=== PATIENT | female | born 1950 | race Caucasian/White ===

== ENCOUNTER 2022-10-06 19:54 | Inpatient (IN) | payer MEDICARE, OTHER ==
[~2022-10-06] VITALS: Ht 165.1 cm; Wt 48.2 kg
[~2022-10-06 19:54] MED LIST: ACET-2154 PO; MAG-55 PO; MAGN400O6 PO; METO25TA6 PO; MULT1TAB11 PO; ZOLP5TAB8 PO
[2022-10-06] MEDS ORDERED: diphenhydrAMINE 50 MG/1 ML VIAL IM ONE (20:00)
[2022-10-06] MEDS ORDERED: OLANZAPINE 10 MG VIAL IM ONE ×4 (20:00→21:02)
[2022-10-06] MEDS ORDERED: diphenhydrAMINE 50 MG/1 ML VIAL ONE (20:20)
[2022-10-06 20:22] LABS: *BLOOD, URINE NEGATIVE (NEGATIVE); *CLARITY,URINE CLEAR (CLEAR); *COLOR,URINE YELLOW (YELLOW); *KETONES,URINE 2+ (NEGATIVE); *PROTEIN,URINE NEGATIVE (NEGATIVE); *UROBILINOGEN,URINE 0.2 E.U./dl (NORMAL); LEUKOCYTE ESTERASE ,URINE NEGATIVE (NEGATIVE); NITRITE, URINE NEGATIVE (NEGATIVE); PH,URINE 6.5 (5.0-8.0); UGLUCOSE NEGATIVE (NEGATIVE)
[2022-10-06 20:27] LABS: BASOPHILS # (AUTO) 0.4 K/UL (0.0-0.2); EOSINOPHILS # (AUTO) 0.1 K/uL (0.0-0.7); EOSINOPHILS % (AUTO) 1.5 % (0.0-7.0); HEMOGLOBIN 12.5 g/dL (10.9-14.3); LYMPHOCYTES # (AUTO) 0.8 K/uL (0.8-4.8); LYMPHOCYTES % (AUTO) 9.2 % (20.5-51.5); MEAN CORPUSCULAR HEMOGLOBIN 31.1 uug (24.7-32.8); MEAN CORPUSCULAR HGB CONC 33 g/dL (32.3-35.6); MEAN CORPUSCULAR VOLUME 94.6 fL (75.5-95.3); MONOCYTES # (AUTO) 0.6 K/uL (0.1-1.30); MONOCYTES % (AUTO) 6.9 % (0.0-11.0); NEUTROPHILS # (AUTO) 6.3 K/uL (1.8-8.9); NEUTROPHILS % (AUTO) 77.4 % (38.5-71.5); PLATELET COUNT (AUTO) 401 K/uL (179-408); RED BLOOD CELL COUNT(AUTO) 4.02 MIL/uL (3.63-4.92); WHITE BLOOD COUNT (AUTO) 8.2 K/uL (3.8-11.8)
[2022-10-06 20:28] LABS: *AMPHETAMINE, URINE NEGATIVE (NEGATIVE); *BARBITURATE, URINE NEGATIVE (NEGATIVE); *BENZODIAZEPINE, URINE NEGATIVE (NEGATIVE); *CANNABINOID, URINE NEGATIVE (NEGATIVE); *COCCAINE, URINE NEGATIVE (NEGATIVE); *OPIATE, URINE NEGATIVE (NEGATIVE); *PHENCYCLIDINE SCREEN,URINE NEGATIVE (NEGATIVE); FENTANYL, URINE NEGATIVE (NEGATIVE)
[2022-10-06 20:38] LABS: *BILIRUBIN,URIN 1+ (NEGATIVE)
[2022-10-06 20:38] LABS: CALCIUM 10.9 mg/dL (8.5-10.1); CARBON DIOXIDE 25 mmol/L (21-32); CHLORIDE 106 mmol/L (98-107); CREATININE 1.2 mg/dL (0.6-1.3); GLUCOSE 122 mg/dL (74-106); POTASSIUM 3.8 mmol/L (3.5-5.1); SODIUM SERUM 144 mmol/L (136-145); UREA NITROGEN, BLOOD 38 mg/dL (7-18)
[2022-10-06 20:39] LABS: AMMONIA < 10 umol/L (11-32)
[2022-10-06 20:40] LABS: DIFFERENTIAL COMMENT 1
[2022-10-06 20:46] LABS: ALANINE AMINOTRANSFERASE 12 U/L (14-59); ALBUMIN 3.8 g/dL (3.4-5.0); ALKALINE PHOSPHATASE 96 U/L (50-136); ASPARTATE AMINOTRANSFERASE 22 U/L (15-37); BILIRUBIN,DIRECT 0.1 mg/dL (0.0-0.2); BILIRUBIN,TOTAL 0.4 mg/dL (0.2-1.0)
[2022-10-06 20:49] LABS: ACETAMINOPHEN < 10.0 ug/mL (10-30)
[2022-10-06] MEDS ORDERED: DEUT12TA PO (20:56)
[2022-10-06] MEDS ORDERED: PARO-154 PO (20:56)
[2022-10-06] MEDS ORDERED: TRIA15CR2 TP (20:56)
[2022-10-06] MEDS ORDERED: ASCO500C18 PO (20:56)
[2022-10-06] MEDS ORDERED: MELA3CAP2 PO (20:56)
[2022-10-06] MEDS ORDERED: LOPE2TAB25 PO (20:56)
[2022-10-06] MEDS ORDERED: CHOL10005 PO (20:56)
[2022-10-06] MEDS ORDERED: NYST15CR TP (20:56)
[2022-10-06] MEDS ORDERED: GUAI100S69 PO (20:56)
[2022-10-06] MEDS ORDERED: OLAN10TA3 PO (20:56)
[2022-10-06] MEDS ORDERED: MIRT-119 PO (20:56)
[2022-10-06] MEDS ORDERED: POTA-88 PO (20:56)
[2022-10-06 20:58] LABS: RBC,URINE NONE SEEN /HPF (0-3); WBC,URINE 0-3 /HPF (0-3)
[2022-10-06 20:59] LABS: BACTERIA,URINE FEW /HPF (NONE SEEN); SQUAMOUS EPITHELIAL CELL,UR FEW /HPF (NONE SEEN)
[2022-10-06] MEDS ORDERED: LORAZEPAM 2 MG/1 ML VIAL IM ONE (21:00)
[2022-10-06] MEDS ORDERED: LORAZEPAM 2 MG/1 ML VIAL ONE (21:01)
[2022-10-06 21:55] LABS: ETHANOL < 3 MG/DL (0-10)
[2022-10-07] MEDS ORDERED: ACETAMINOPHEN 325 MG TABLET PO PRN (01:15)
[2022-10-07] MEDS ORDERED: MAGNESIUM HYDROXIDE 30 ML LIQUID UDC PO PRN (01:15)
[2022-10-07] MEDS ORDERED: MAG HYDROX/AL HYDROX/SIMETH 30 ML LIQUID UDC PO PRN (01:15)
[2022-10-07] MEDS ORDERED: TEMAZEPAM 7.5 MG CAPSULE PO PRN (01:15)
[2022-10-07] MEDS: CLONAZEPAM 0.5 MG TABLET PO PRN ×2 (01:52→05:47)
[2022-10-07 02:15] VITALS: BP 144/49; TEMP 98; O2SAT 94
[2022-10-07 07:50] VITALS: BP 109/65; TEMP 98.4; O2SAT 97
[2022-10-07] MEDS: DIVALPROEX SPRINKLE 125 MG CAP.SPRINK PO SCH ×3 (11:00→17:00)
[2022-10-07] MEDS: OLANZAPINE ZYDIS 5 MG TAB.RAPDIS PO SCH ×2 (11:15→20:28)
[2022-10-07 16:13] VITALS: BP 136/73; TEMP 98.1; O2SAT 97
[2022-10-07 20:00] VITALS: BP 115/66; TEMP 96.6; O2SAT 99
[2022-10-07] MEDS: MIRTAZAPINE 15 MG TABLET PO SCH (20:27)
[2022-10-07] MEDS: NYSTATIN CREAM 30 GM TUBE TOP SCH (20:28)
[2022-10-08 08:25] VITALS: BP 134/51; TEMP 98.3; O2SAT 97
[2022-10-08] MEDS: OLANZAPINE ZYDIS 5 MG TAB.RAPDIS PO SCH ×2 (09:00→21:25)
[2022-10-08] MEDS: DIVALPROEX SPRINKLE 125 MG CAP.SPRINK PO SCH ×3 (09:00→16:51)
[2022-10-08] MEDS: NYSTATIN CREAM 30 GM TUBE TOP SCH ×2 (09:00→21:25)
[2022-10-08 16:20] VITALS: BP 119/48; TEMP 98; O2SAT 98
[2022-10-08 19:56] VITALS: BP 136/56; TEMP 98.2; O2SAT 98
[2022-10-08] MEDS: MIRTAZAPINE 15 MG TABLET PO SCH (21:25)
[2022-10-09 07:53] VITALS: BP 105/51; TEMP 98; O2SAT 98
[2022-10-09] MEDS: OLANZAPINE ZYDIS 5 MG TAB.RAPDIS PO SCH ×2 (08:57→20:51)
[2022-10-09] MEDS: DIVALPROEX SPRINKLE 125 MG CAP.SPRINK PO SCH ×3 (08:57→17:47)
[2022-10-09] MEDS: NYSTATIN CREAM 30 GM TUBE TOP SCH ×2 (08:58→20:51)
[2022-10-09 16:07] VITALS: BP 108/49; TEMP 97.9; O2SAT 97
[2022-10-09] MEDS ORDERED: GLUCAGON,HUMAN RECOMBINANT 1 MG VIAL IM ONE (17:30)
[2022-10-09] MEDS: ENSURE ENLIVE (VAN) 240 ML LIQUID PO SCH (17:47)
[2022-10-09 19:43] VITALS: BP 101/55; TEMP 97.8; O2SAT 96
[2022-10-09] MEDS: MIRTAZAPINE 15 MG TABLET PO SCH (20:50)
[2022-10-09] MEDS: BLOOD SUGAR DIAGNOSTIC 1 EACH STRIP VI SCH (20:51)
[2022-10-10] MEDS: BLOOD SUGAR DIAGNOSTIC 1 EACH STRIP VI SCH ×3 (06:38→16:45)
[2022-10-10 08:04] VITALS: BP 90/48; TEMP 98; O2SAT 96
[2022-10-10] MEDS: ENSURE ENLIVE (VAN) 240 ML LIQUID PO SCH ×2 (08:08→17:23)
[2022-10-10] MEDS: DIVALPROEX SPRINKLE 125 MG CAP.SPRINK PO SCH ×3 (08:30→17:23)
[2022-10-10] MEDS: NYSTATIN CREAM 30 GM TUBE TOP SCH (08:30)
[2022-10-10] MEDS: OLANZAPINE ZYDIS 5 MG TAB.RAPDIS PO SCH (08:30)
[2022-10-10 15:23] VITALS: BP 93/52; TEMP 98; O2SAT 98
[2022-10-12] MEDS ORDERED: ATOR10TA PO (12:22)
[2022-10-12] MEDS ORDERED: OLAN5TAB70 PO ×2 (12:22)
[2022-10-12] MEDS ORDERED: TEMA15CA PO (12:22)
[2022-10-12] MEDS ORDERED: MAGN400O6 PO (12:22)
[2022-10-12] MEDS ORDERED: DOCU-141 PO (12:22)
[2022-10-12] MEDS ORDERED: NUT.237L36 PO (12:22)
[2022-10-12] MEDS ORDERED: PANT40TA49 PO (12:22)
[2022-10-12] MEDS ORDERED: DIVA125T2 PO (12:22)
== END 2022-10-10 20:00 | DRG 885 ==
LOC: ER 20:01 → GPS 10-07 00:30
PROVIDERS: ADMIT Psychiatry & Neurology Psychiatry; ATTEND Nurse Practitioner Acute Care
DX: F25.9 Schizoaffective disorder, unspecified (principal); F03.94 Unspecified dementia, unspecified severity, with anxiety; Z68.1 Body mass index [BMI] 19.9 or less, adult; E44.1 Mild protein-calorie malnutrition; E86.0 Dehydration; E78.5 Hyperlipidemia, unspecified; F31.9 Bipolar disorder, unspecified; K59.09 Other constipation; Z87.891 Personal history of nicotine dependence; Z73.6 Limitation of activities due to disability; I10 Essential (primary) hypertension; F41.9 Anxiety disorder, unspecified
CPT/HCPCS: 36415; 71045; 84443; 84484; 85025; 93005; A4663; G0480; J1200; J1610; J2060; J2358

== ENCOUNTER 2022-10-10 20:33 | Inpatient (IN) | payer MEDICARE ==
[~2022-10-10] VITALS: Ht 167.6 cm; Wt 61.7 kg
[~2022-10-10 20:33] MED LIST changes: +ASCO500C18 PO; +CHOL10005 PO; +GUAI100S69 PO; +LOPE2TAB25 PO; -MAG-55 PO; -MAGN400O6 PO; -METO25TA6 PO; -MULT1TAB11 PO; +NYST15CR TP; +POTA-88 PO; +TRIA15CR2 TP; -ZOLP5TAB8 PO
[2022-10-10] MEDS ORDERED: ACETAMINOPHEN 325 MG TABLET PO PRN (21:15)
[2022-10-10 21:55] VITALS: BP 115/61; TEMP 97.8; O2SAT 95
[2022-10-10] MEDS ORDERED: TEMAZEPAM 15 MG CAPSULE PO PRN (22:30)
[2022-10-10] MEDS ORDERED: MAGNESIUM HYDROXIDE 30 ML LIQUID UDC PO PRN (22:30)
[2022-10-11 00:54] LABS: *BILIRUBIN,URIN NEGATIVE (NEGATIVE); *BLOOD, URINE NEGATIVE (NEGATIVE); *CLARITY,URINE CLEAR (CLEAR); *COLOR,URINE YELLOW (YELLOW); *KETONES,URINE 1+ (NEGATIVE); *PROTEIN,URINE NEGATIVE (NEGATIVE); *UROBILINOGEN,URINE 0.2 E.U./dl (NORMAL); LEUKOCYTE ESTERASE ,URINE NEGATIVE (NEGATIVE); NITRITE, URINE NEGATIVE (NEGATIVE); UGLUCOSE NEGATIVE (NEGATIVE)
[2022-10-11 01:19] LABS: RBC,URINE NONE SEEN /HPF (0-3); WBC,URINE NONE SEEN /HPF (0-3)
[2022-10-11 01:20] LABS: BACTERIA,URINE NONE SEEN /HPF (NONE SEEN); SQUAMOUS EPITHELIAL CELL,UR FEW /HPF (NONE SEEN)
[2022-10-11] MEDS: PANTOPRAZOLE SODIUM 40 MG TABLET.DR PO SCH (06:14)
[2022-10-11 08:16] LABS: BASOPHILS % (AUTO) 0.7 % (0.0-2.0); EOSINOPHILS # (AUTO) 0.6 K/uL (0.0-0.7); HEMATOCRIT 36.4 % (31.2-41.9); HEMOGLOBIN 12.1 g/dL (10.9-14.3); LYMPHOCYTES # (AUTO) 1.3 K/uL (0.8-4.8); LYMPHOCYTES % (AUTO) 22.3 % (20.5-51.5); MEAN CORPUSCULAR HEMOGLOBIN 31.2 uug (24.7-32.8); MEAN CORPUSCULAR HGB CONC 33 g/dL (32.3-35.6); MEAN CORPUSCULAR VOLUME 94.2 fL (75.5-95.3); MONOCYTES # (AUTO) 0.6 K/uL (0.1-1.30); MONOCYTES % (AUTO) 9.8 % (0.0-11.0); NEUTROPHILS # (AUTO) 3.4 K/uL (1.8-8.9); NEUTROPHILS % (AUTO) 57.2 % (38.5-71.5); PLATELET COUNT (AUTO) 330 K/uL (179-408); RED BLOOD CELL COUNT(AUTO) 3.86 MIL/uL (3.63-4.92)
[2022-10-11 08:30] LABS: DIFFERENTIAL COMMENT 1
[2022-10-11 08:41] VITALS: BP 124/67; TEMP 98; O2SAT 93
[2022-10-11 08:45] LABS: THYROID STIMULATING HORMONE 2.302 mIU/mL (0.358-3.740)
[2022-10-11 08:51] LABS: IRON, SERUM 43 ug/dL (50-175)
[2022-10-11 08:52] LABS: ALANINE AMINOTRANSFERASE 16 U/L (14-59); ALKALINE PHOSPHATASE 86 U/L (50-136); ASPARTATE AMINOTRANSFERASE 13 U/L (15-37); BILIRUBIN,TOTAL 0.3 mg/dL (0.2-1.0); CALCIUM 9.4 mg/dL (8.5-10.1); CARBON DIOXIDE 29 mmol/L (21-32); CHLORIDE 106 mmol/L (98-107); CHOLESTEROL 219 mg/dL (<200); GLUCOSE 100 mg/dL (74-106); HDL CHOLESTEROL 46 mg/dL (40-60); MAGNESIUM 1.9 mg/dL (1.8-2.4); NT-PRO BNP 306 pg/mL (0-125); PHOSPHOROUS 3.2 mg/dL (2.5-4.9); POTASSIUM 3.6 mmol/L (3.5-5.1); SODIUM SERUM 141 mmol/L (136-145); TOTAL PROTEIN, SERUM 6.5 g/dL (6.4-8.2); TRIGLYCERIDES 120 MG/DL (30-150); UREA NITROGEN, BLOOD 27 mg/dL (7-18)
[2022-10-11] MEDS ORDERED: NYSTATIN CREAM 30 GM TUBE TP SCH ×2 (09:00)
[2022-10-11] MEDS: ASCORBIC ACID 500 MG TABLET PO SCH (09:00)
[2022-10-11 09:19] LABS: ALBUMIN 2.9 g/dL (3.4-5.0)
[2022-10-11 12:00] VITALS: BP 126/64; TEMP 97.5; O2SAT 95
[2022-10-11 20:00] VITALS: BP 110/63; TEMP 98.6; O2SAT 90
[2022-10-11] MEDS: PERMETHRIN 5% CREAM 60 GM TUBE TP ONE ×2 (21:00→21:18)
[2022-10-11] MEDS ORDERED: ATORVASTATIN 10 MG TABLET PO SCH (21:00)
[2022-10-11] MEDS ORDERED: DOCUSATE SODIUM 100 MG CAPSULE PO SCH (21:00)
[2022-10-12] MEDS ORDERED: LORAZEPAM 2 MG/1 ML VIAL IV ONE (00:30)
[2022-10-12] MEDS ORDERED: HALOPERIDOL LACTATE 5 MG/1 ML VIAL IM ONE (01:00)
[2022-10-12 04:00] VITALS: BP 107/58; TEMP 98.4; O2SAT 91
[2022-10-12] MEDS: PANTOPRAZOLE SODIUM 40 MG TABLET.DR PO SCH (06:20)
[2022-10-12] MEDS: ASCORBIC ACID 500 MG TABLET PO SCH (09:37)
[2022-10-12] MEDS ORDERED: LORAZEPAM 0.5 MG TABLET PO STA (10:52)
[2022-10-12] MEDS ORDERED: DIVALPROEX ER 250 MG TAB.SR.24H PO SCH (11:00)
[2022-10-12] MEDS ORDERED: OLANZAPINE 5 MG TABLET PO SCH ×4 (11:00→21:00)
[2022-10-12] MEDS ORDERED: HALOPERIDOL LACTATE 5 MG/1 ML VIAL IM STA (11:32)
[2022-10-12] MEDS ORDERED: LORAZEPAM 2 MG/1 ML VIAL IM STA (11:32)
[2022-10-12] MEDS ORDERED: ATOR10TA PO (12:22)
[2022-10-12] MEDS ORDERED: OLAN5TAB70 PO ×2 (12:22)
[2022-10-12] MEDS ORDERED: MAGN400O6 PO (12:22)
[2022-10-12] MEDS ORDERED: DIVA125T2 PO (12:22)
[2022-10-12] MEDS ORDERED: NUT.237L36 PO (12:22)
[2022-10-12] MEDS ORDERED: TEMA15CA PO (12:22)
[2022-10-12] MEDS ORDERED: PANT40TA49 PO (12:22)
[2022-10-12] MEDS ORDERED: DOCU-141 PO (12:22)
[2022-10-12] MEDS ORDERED: DIVALPROEX 125 MG TABLET.DR PO SCH (13:00)
[2022-10-13] MEDS ORDERED: GLUCERNA SHAKE 237 ML CAN PO SCH (09:00)
[2022-10-13] MEDS ORDERED: OLANZAPINE 5 MG TABLET PO SCH (09:00)
== END 2022-10-12 13:20 | DRG 641 ==
LOC: TELE3 20:33 → MEDSURG3 10-11 11:35
PROVIDERS: ADMIT Internal Medicine; ATTEND Internal Medicine
DX: E16.2 Hypoglycemia, unspecified (principal); E44.0 Moderate protein-calorie malnutrition; F03.93 Unspecified dementia, unspecified severity, with mood disturbance; R62.7 Adult failure to thrive; F31.9 Bipolar disorder, unspecified; B86 Scabies; E78.5 Hyperlipidemia, unspecified; I10 Essential (primary) hypertension; Z87.891 Personal history of nicotine dependence; E88.09 Other disorders of plasma-protein metabolism, not elsewhere classified; K59.09 Other constipation; Z68.22 Body mass index [BMI] 22.0-22.9, adult; F25.9 Schizoaffective disorder, unspecified
CPT/HCPCS: 36415; 71045; 83550; 83735; 84100; 84305; 84443; 84484; 85025; 93005; A4663; A6213; C1758; G0378; J1630; J2060